=== PATIENT | male | born 1950 | race Asian ===

== ENCOUNTER → 2016-07-12 | Outpatient (CLI) | payer MEDICARE ==
[~2016-07-12] MED LIST: ACET-709 PO; Amlodipine Besylate PO; CALC0.25 PO; ERGO500017 PO; FURO40TA6 PO; INSU100V13 SQ; INSU100V13 SQ-INSULIN; LACT10SO38 PO; LISI-170 PO; LOSA50TA6 PO; SEVE800T8 PO; SODI650T PO
== END | disposition home or self-care (01) ==
LOC: CFH 12:46
PROVIDERS: ATTEND Internal Medicine
DX: J98.11 Atelectasis (principal); J90 Pleural effusion, not elsewhere classified
CPT/HCPCS: 71020

== ENCOUNTER 2017-11-21 20:13 | Inpatient (IN) | payer MEDICARE ==
[~2017-11-21] VITALS: Ht 172.7 cm; Wt 51.6 kg
[~2017-11-21 20:13] MED LIST changes: +ATOR20TA9 PO; +CARV3.1212 PO; +FURO-92 PO; +INSU100I11 SQ-INSULIN
[2017-11-21] MEDS ORDERED: SODIUM CHLORIDE FLUSH 10ML SYR IVF ONE ×2 (21:30→22:00)
[2017-11-21 22:02] LABS: BASOPHILS # (AUTO) 0.05 x10^3/uL (0-0.1); BASOPHILS % (AUTO) 1 % (0-1); EOSINOPHILS # (AUTO) 0.07 x10^3/uL (0-0.4); EOSINOPHILS % (AUTO) 1 % (1-7); LYMPHOCYTES # (AUTO) 1.42 x10^3/uL (1-3.4); LYMPHOCYTES % (AUTO) 16 % (22-44); MD NO; MEAN CORPUSCULAR HEMOGLOBIN 34.7 pg (27.5-34.5); MEAN CORPUSCULAR HGB CONC 33.7 g/dL (33.2-36.2); MEAN PLATELET VOLUME 9.6 fL (7.4-10.4); MONOCYTES # (AUTO) 0.59 x10^3/uL (0.2-0.8); MONOCYTES % (AUTO) 7 % (2-9); NEUTROPHILS # (AUTO) 6.56 x10^3/uL (1.8-6.8); NEUTROPHILS % (AUTO) 76 % (42-75); PLATELET COUNT 128 x10^3/uL (130-400); RED BLOOD COUNT 3.83 x10^6/uL (4.38-5.82); RED CELL DISTRIBUTION WIDTH 17.1 % (9.4-14.8)
[2017-11-21 22:11] LABS: INTERNATIONAL NORMALIZED RATIO 1.17 (0.93-1.1)
[2017-11-21 22:14] LABS: ALANINE AMINOTRANSFERASE 15 U/L (12-78); ALBUMIN 3.2 g/dL (3.4-5.0); ANION GAP 10 mmol/L (5-15); CALCIUM 9.2 mg/dL (8.5-10.1); CHLORIDE 94 mmol/L (98-107); CREATININE 3.79 mg/dL (0.7-1.3)
[2017-11-21 22:16] LABS: ALKALINE PHOSPHATASE 148 U/L (45-117); BILIRUBIN,TOTAL 1.8 mg/dL (0.2-1.0); TOTAL PROTEIN 7.3 g/dL (6.4-8.2)
[2017-11-21] MEDS ORDERED: ASPIRIN 325 MG TABLET PO ONE (22:30)
[2017-11-21] MEDS ORDERED: ASPIRIN 325 MG TABLET ONE (23:44)
[2017-11-22] VITALS (7 sets, daily range): BP systolic 121–161; BP diastolic 80–94
[2017-11-22] MEDS ORDERED: ACETAMINOPHEN 325 MG TABLET PO PRN
[2017-11-22] MEDS ORDERED: ONDANSETRON ODT 4 MG PO PRN
[2017-11-22] MEDS ORDERED: TRAZODONE 50MG TABLET PO PRN
[2017-11-22] MEDS: CARVEDILOL 3.125 MG TABLET PO SCH ×2 (05:19→20:46)
[2017-11-22 07:18] LABS: BASOPHILS # (AUTO) 0.04 x10^3/uL (0-0.1); BASOPHILS % (AUTO) 1 % (0-1); EOSINOPHILS # (AUTO) 0.04 x10^3/uL (0-0.4); EOSINOPHILS % (AUTO) 0 % (1-7); LYMPHOCYTES % (AUTO) 22 % (22-44); MD NO; MEAN CORPUSCULAR HEMOGLOBIN 33.9 pg (27.5-34.5); MEAN CORPUSCULAR HGB CONC 32.8 g/dL (33.2-36.2); MEAN CORPUSCULAR VOLUME 103.6 fL (81-97); MEAN PLATELET VOLUME 9.6 fL (7.4-10.4); MONOCYTES # (AUTO) 0.53 x10^3/uL (0.2-0.8); MONOCYTES % (AUTO) 6 % (2-9); NEUTROPHILS # (AUTO) 5.85 x10^3/uL (1.8-6.8); NEUTROPHILS % (AUTO) 71 % (42-75); PLATELET COUNT 127 x10^3/uL (130-400); RED BLOOD COUNT 3.67 x10^6/uL (4.38-5.82); RED CELL DISTRIBUTION WIDTH 17.2 % (9.4-14.8)
[2017-11-22 07:29] LABS: ALANINE AMINOTRANSFERASE 17 U/L (12-78); ANION GAP 11 mmol/L (5-15); CHLORIDE 94 mmol/L (98-107); CREATININE 4.28 mg/dL (0.7-1.3)
[2017-11-22 07:39] LABS: ALKALINE PHOSPHATASE 128 U/L (45-117); BILIRUBIN,TOTAL 1.8 mg/dL (0.2-1.0); TOTAL PROTEIN 6.8 g/dL (6.4-8.2)
[2017-11-22] MEDS: SEVELAMER CARBONATE 800MG TAB PO SCH ×3 (08:20→19:24)
[2017-11-22] MEDS: SODIUM CHLORIDE FLUSH 10ML SYR IVF SCH ×2 (08:20→20:48)
[2017-11-22] MEDS: CALCITRIOL 0.25 MCG CAPSULE PO SCH (08:20)
[2017-11-22] MEDS: LACTULOSE 10 GM/15 ML UDC PO SCH ×2 (08:21→20:46)
[2017-11-22] MEDS: INSULIN LISPRO 100 UNITS/ML, PEN SQ-INSULIN SCH ×4 (08:46→20:46)
[2017-11-22] MEDS: INSULIN GLARGINE 100 UNITS/ML, PEN SQ-INSULIN SCH (08:46)
[2017-11-22] MEDS: SENNA/DOCUSATE TABLET PO SCH (08:48)
[2017-11-22] MEDS: ATORVASTATIN 20 MG TABLET PO SCH (20:46)
[2017-11-22] MEDS: APIXABAN 2.5 MG TABLET PO SCH (20:46)
[2017-11-23 01:49] VITALS: BP 110/74
[2017-11-23] MEDS ORDERED: DEXTROSE 50%, 50ML SYRINGE IVPush PRN (05:30)
[2017-11-23] MEDS ORDERED: GLUCAGON 1 MG IM PRN (05:30)
[2017-11-23] MEDS ORDERED: DEXTROSE 4 GM TAB.CHEW ONE (05:32)
[2017-11-23] MEDS: DEXTROSE 4 GM TAB.CHEW PO PRN ×2 (05:35→06:02)
[2017-11-23] MEDS: CARVEDILOL 3.125 MG TABLET PO SCH ×2 (05:36→17:12)
[2017-11-23 06:06] LABS: BASOPHILS # (AUTO) 0.03 x10^3/uL (0-0.1); BASOPHILS % (AUTO) 0 % (0-1); EOSINOPHILS % (AUTO) 1 % (1-7); LYMPHOCYTES # (AUTO) 2.04 x10^3/uL (1-3.4); LYMPHOCYTES % (AUTO) 19 % (22-44); MD NO; MEAN CORPUSCULAR HEMOGLOBIN 34.4 pg (27.5-34.5); MEAN CORPUSCULAR HGB CONC 33.1 g/dL (33.2-36.2); MEAN CORPUSCULAR VOLUME 103.9 fL (81-97); MEAN PLATELET VOLUME 9.8 fL (7.4-10.4); MONOCYTES # (AUTO) 0.94 x10^3/uL (0.2-0.8); MONOCYTES % (AUTO) 9 % (2-9); NEUTROPHILS % (AUTO) 72 % (42-75); PLATELET COUNT 165 x10^3/uL (130-400); RED BLOOD COUNT 4.07 x10^6/uL (4.38-5.82); RED CELL DISTRIBUTION WIDTH 16.6 % (9.4-14.8)
[2017-11-23 06:08] LABS: ALBUMIN 3.3 g/dL (3.4-5.0); ANION GAP 10 mmol/L (5-15); CHLORIDE 101 mmol/L (98-107)
[2017-11-23 06:12] LABS: % IRON SATURATION 18 % (20-55); ALANINE AMINOTRANSFERASE 18 U/L (12-78); ALKALINE PHOSPHATASE 110 U/L (45-117); BILIRUBIN,TOTAL 1.7 mg/dL (0.2-1.0); CREATININE 3.43 mg/dL (0.7-1.3); IRON LEVEL 39 mcg/dL (65-175); TOTAL IRON BINDING CAPACITY 217 mcg/dL (250-450); TOTAL PROTEIN 7.6 g/dL (6.4-8.2)
[2017-11-23] MEDS: INSULIN LISPRO 100 UNITS/ML, PEN SQ-INSULIN SCH ×4 (07:00→19:49)
[2017-11-23 08:00] VITALS: BP 137/74
[2017-11-23] MEDS: CALCITRIOL 0.25 MCG CAPSULE PO SCH (08:18)
[2017-11-23] MEDS: SENNA/DOCUSATE TABLET PO SCH (08:18)
[2017-11-23] MEDS: LACTULOSE 10 GM/15 ML UDC PO SCH ×2 (08:18→20:04)
[2017-11-23] MEDS: SEVELAMER CARBONATE 800MG TAB PO SCH ×3 (08:18→17:12)
[2017-11-23] MEDS: APIXABAN 2.5 MG TABLET PO SCH ×2 (08:18→20:04)
[2017-11-23] MEDS: INSULIN GLARGINE 100 UNITS/ML, PEN SQ-INSULIN SCH ×2 (08:19→11:48)
[2017-11-23] MEDS: SODIUM CHLORIDE FLUSH 10ML SYR IVF SCH ×4 (08:19→19:48)
[2017-11-23 13:03] VITALS: BP 130/74
[2017-11-23] MEDS: ATORVASTATIN 20 MG TABLET PO SCH (20:04)
[2017-11-23 20:50] VITALS: BP 116/74
[2017-11-24 01:15] VITALS: BP 126/82
[2017-11-24 05:41] VITALS: BP 118/70
[2017-11-24] MEDS: CARVEDILOL 3.125 MG TABLET PO SCH ×2 (05:44→18:02)
[2017-11-24 06:00] LABS: BASOPHILS # (AUTO) 0.04 x10^3/uL (0-0.1); BASOPHILS % (AUTO) 1 % (0-1); EOSINOPHILS # (AUTO) 0.09 x10^3/uL (0-0.4); EOSINOPHILS % (AUTO) 1 % (1-7); LYMPHOCYTES # (AUTO) 1.44 x10^3/uL (1-3.4); LYMPHOCYTES % (AUTO) 15 % (22-44); MD NO; MEAN CORPUSCULAR HEMOGLOBIN 34.2 pg (27.5-34.5); MEAN CORPUSCULAR HGB CONC 33.1 g/dL (33.2-36.2); MEAN CORPUSCULAR VOLUME 103.1 fL (81-97); MEAN PLATELET VOLUME 9.9 fL (7.4-10.4); MONOCYTES # (AUTO) 0.83 x10^3/uL (0.2-0.8); MONOCYTES % (AUTO) 9 % (2-9); NEUTROPHILS # (AUTO) 7.19 x10^3/uL (1.8-6.8); NEUTROPHILS % (AUTO) 75 % (42-75); PLATELET COUNT 142 x10^3/uL (130-400); RED CELL DISTRIBUTION WIDTH 16.6 % (9.4-14.8)
[2017-11-24 06:01] LABS: ALBUMIN 2.9 g/dL (3.4-5.0); ANION GAP 8 mmol/L (5-15); CALCIUM 9.2 mg/dL (8.5-10.1); CHLORIDE 97 mmol/L (98-107)
[2017-11-24 06:02] LABS: CREATININE 4.92 mg/dL (0.7-1.3)
[2017-11-24 07:55] VITALS: BP 120/68
[2017-11-24] MEDS: INSULIN LISPRO 100 UNITS/ML, PEN SQ-INSULIN SCH ×4 (08:36→21:48)
[2017-11-24] MEDS: INSULIN GLARGINE 100 UNITS/ML, PEN SQ-INSULIN SCH ×2 (08:37→10:06)
[2017-11-24] MEDS: SEVELAMER CARBONATE 800MG TAB PO SCH ×3 (08:46→18:01)
[2017-11-24] MEDS: SODIUM CHLORIDE FLUSH 10ML SYR IVF SCH ×4 (10:07→21:48)
[2017-11-24] MEDS: CALCITRIOL 0.25 MCG CAPSULE PO SCH (12:18)
[2017-11-24] MEDS: SENNA/DOCUSATE TABLET PO SCH (12:18)
[2017-11-24] MEDS: LACTULOSE 10 GM/15 ML UDC PO SCH ×2 (12:22→21:48)
[2017-11-24 12:55] VITALS: BP 112/67
[2017-11-24 20:42] VITALS: BP 139/82
[2017-11-24] MEDS: ATORVASTATIN 20 MG TABLET PO SCH (21:47)
[2017-11-25 01:25] VITALS: BP 111/71
[2017-11-25] MEDS: CARVEDILOL 3.125 MG TABLET PO SCH (05:43)
[2017-11-25 07:18] VITALS: BP 130/77
[2017-11-25] MEDS: SENNA/DOCUSATE TABLET PO SCH (08:14)
[2017-11-25] MEDS: CALCITRIOL 0.25 MCG CAPSULE PO SCH (08:14)
[2017-11-25] MEDS: LACTULOSE 10 GM/15 ML UDC PO SCH (08:14)
[2017-11-25] MEDS: SEVELAMER CARBONATE 800MG TAB PO SCH ×2 (08:14→12:31)
[2017-11-25] MEDS: INSULIN GLARGINE 100 UNITS/ML, PEN SQ-INSULIN SCH (08:15)
[2017-11-25] MEDS: SODIUM CHLORIDE FLUSH 10ML SYR IVF SCH ×2 (08:16)
[2017-11-25] MEDS: INSULIN LISPRO 100 UNITS/ML, PEN SQ-INSULIN SCH ×2 (08:16→11:55)
== END 2017-11-25 13:10 | disposition home health service (06) | DRG 280 ==
LOC: ED 22:52 → EDIP 23:13 → 5SO 11-22 00:09 → 4WST 11-22 14:56 → DCLOUNGE 11-25 12:54
PROVIDERS: ADMIT Internal Medicine; ATTEND Internal Medicine
PROC: 5A1D70Z Performance of Urinary Filtration, Intermittent, Less than 6 Hours Per Day (ICD-10-PCS; principal; 2017-11-22)
DX: I21.9 Acute myocardial infarction, unspecified (principal); N18.6 End stage renal disease; J96.01 Acute respiratory failure with hypoxia; I50.21 Acute systolic (congestive) heart failure; E46 Unspecified protein-calorie malnutrition; Z68.1 Body mass index [BMI] 19.9 or less, adult; E87.1 Hypo-osmolality and hyponatremia; I13.2 Hypertensive heart and chronic kidney disease with heart failure and with stage 5 chronic kidney disease, or end stage renal disease; J81.1 Chronic pulmonary edema; N17.9 Acute kidney failure, unspecified; E11.65 Type 2 diabetes mellitus with hyperglycemia; E11.22 Type 2 diabetes mellitus with diabetic chronic kidney disease; E11.319 Type 2 diabetes mellitus with unspecified diabetic retinopathy without macular edema; G56.31 Lesion of radial nerve, right upper limb; G89.29 Other chronic pain; M25.531 Pain in right wrist; D64.9 Anemia, unspecified; M54.2 Cervicalgia; N25.0 Renal osteodystrophy; Z79.4 Long term (current) use of insulin; Z87.891 Personal history of nicotine dependence; Z99.2 Dependence on renal dialysis
CPT/HCPCS: 36415; 70450; 70551; 71045; 80053; 80069; 82306; 82728; 82962; 83540; 83550; 83735; 83880; 83970; 84100; 84443; 84484; 84550; 85025; 85610; 85730; 93005; 93306; 93880; 99285; G0378; J1815